=== PATIENT | female | born 1930 | race Caucasian/White ===

== ENCOUNTER 2018-02-25 16:28 | Inpatient (IN) | payer MEDICARE, OTHER ==
[~2018-02-25] VITALS: Ht 172.7 cm; Wt 63.7 kg
[2018-02-25 16:53] LABS: BGAS PH 7.31 (7.35-7.45)
--- NOTE | 2018-02-25 17:17 | RAD ---
RS Compliance Statement: One or more of the following individualized dose reduction techniques were utilized for this examination: 1. Automated exposure control 2. Adjustment of the mA and/or kV according to patient size 3. Use of iterative reconstruction technique CT head without contrast 02/25/2018 4:35 PM INDICATION: Altered loss of consciousness COMPARISON: None available TECHNIQUE: Multiple axial CT images of the head were obtained from skull base through the vertex without intravenous contrast. FINDINGS: Head: Ventricles, sulci and basal cisterns are within normal limits. Low-attenuation in the periventricular white matter suggestive of chronic small vessel ischemic changes. There is no hydrocephalus. Cooper-white matter differentiation is normal. There is no acute intracranial hemorrhage. There is no mass, mass effect or midline shift. Posterior fossa is normal in appearance. Visualized portions of the orbits are normal with exception of suspected bilateral lens replacement. Paranasal sinuses are well aerated. Mastoid air cells are well aerated. Scalp and calvaria are normal. IMPRESSION: No acute intracranial hemorrhage. There is low attenuation the periventricular white matter suggestive of chronic small vessel ischemic changes. Electronically signed by: Kim Mayes MD (02/25/2018 5:14 PM) [facility]
--- NOTE | 2018-02-25 17:19 | RAD ---
Exam: AP portable chest History: Altered level consciousness. Comparison: January 20, 2018. Findings: Cardiac silhouette appears within normal limits for size. Small left pleural effusion is seen, appears slightly larger. No pneumothorax identified. Right lung appears clear. 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 Impression: 1. Small left pleural effusion, slightly larger in the interval. Electronically signed by: James Mcdaniels MD (02/25/2018 5:15 PM) [facility]
[2018-02-25] MEDS ORDERED: IV NORMAL SALINE 1,000ML 1,000 ML IV ONE (17:30)
[2018-02-25 17:32] LABS: BASO # 0.2 x10^3/uL (0.0-0.2); BASO % 1 % (0-3); EOS % 0 % (0-3); HEMATOCRIT 38.4 % (36.0-47.0); HEMOGLOBIN 11.9 g/dL (12.0-15.5); LYMPH # 0.5 x10^3/uL (1.0-4.8); LYMPH % 2 % (24-48); MEAN CORPUSCULAR HEMOGLOBIN 28 pg (25-35); MEAN CORPUSCULAR HGB CONC 31 g/dL (31-37); MEAN CORPUSCULAR VOLUME 89 fL (79-100); MONO # 0.7 x10^3/uL (0.0-1.1); MONO % 3 % (0-9); NEUT # 21.5 x10^3uL (1.8-7.7); NEUT % 94 % (31-73); PLATELET COUNT 318 x10^3/uL (140-400); RED BLOOD COUNT 4.33 x10^6/uL (3.50-5.40); RED CELL DISTRIBUTION WIDTH 16.6 % (11.5-14.5); WHITE BLOOD COUNT 22.9 x10^3/uL (4.0-11.0)
--- NOTE | 2018-02-25 17:34 | PHYS DOC ---
Past History Past Medical History: COPD, GERD, Renal Disease, Renal Failure Past Surgical History: Other Alcohol Use: None Drug Use: None Adult General Chief Complaint Chief Complaint: ALTERED MENTAL STATUS HPI HPI 87-year-old female patient resident of rehabilitation brought in by EMS because of altered level of consciousness for the last 5 days gradually getting worse. Patient had a fall in middle of January and had left humerus fracture with several surgeries and since her fall and her condition declined and was not able to ambulate like her usual but was able to talk. Patient's son stated since 5 days ago she was not talking like her usual and yesterday her condition got worse. Patient is not able to give history. Review of Systems Review of Systems Unable to obtain because of medical condition and altered level of consciousness Physical Exam Physical Exam Constitutional: Moderate distress, non-toxic appearance, responsive to verbal stimuli. [] HENT: Normocephalic, atraumatic, oropharynx dry. Eyes: PERRLA, EOMI, conjunctiva normal, no discharge. [] Neck: Normal range of motion, no tenderness, supple, no stridor. [] Cardiovascular: Tachycardia, no murmur [] Lungs & Thorax: Marked respiratory distress with intercostal retraction, bilateral basilar rale Abdomen: Bowel sounds normal, soft, no tenderness, no masses, no pulsatile masses. [] Skin: Pale Extremities: Left upper extremity with old ecchymosis and surgical wound, bilateral lower extremity edema, moves all extremities Neurologic: Lethargic, oriented 1, speech is slurred , moves all extremities, limited exam because of altered level of consciousness. [] Psychologic: Unable to evaluate Current Patient Data Vital Signs Vital Signs Date Time Temp Pulse Resp B/P (MAP) Pulse Ox O2 Delivery O2 Flow Rate FiO2 02/25/18 17:15 103 24 123/47 (72) 95 Nasal Cannula 3.0 02/25/18 17:08 98.0 Lab Results Laboratory Tests Test 02/25/18 16:35 Blood pH 7.31 (7.35-7.45) L Blood Gas PCO2 65 mmHg (35-45) *H Blood Gas PO2 80 mmHg (71-100) Blood Gas HCO3 33 mmol/L (22-26) H Arterial Bld O2 Saturation (Calc) 94 % (92-99) FiO2 28 % EKG EKG EKG interpreted by me. EKG at 1711 showed sinus rhythm with PACs, low-voltage QRS, no acute ST and T-wave abnormalities[] Radiology/Procedures Radiology/Procedures [][address] [address] IMAGING REPORT Signed PATIENT: LINDA GUEVARA ACCOUNT: [id number] : 1930 LOCATION: ER AGE: 87 SEX: F EXAM STATUS: PRE ER ORD. PHYSICIAN: LYNN MCGRATH MD REASON: ALOC PROCEDURE: PORTABLE CHEST 1V Exam: AP portable chest History: Altered level consciousness. Comparison: January 20, 2018. Findings: Cardiac silhouette appears within normal limits for size. Small left pleural effusion is seen, appears slightly larger. No pneumothorax identified. Right lung appears clear. 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 Impression: 1. Small left pleural effusion, slightly larger in the interval. Electronically signed by: James Jackman MD (02/25/2018 5:15 PM) [facility] DICTATED AND SIGNED BY: JAMES JACKMAN MD DATE: 02/25/[address] [address] IMAGING REPORT Signed PATIENT: LINDA GUEVARA ACCOUNT: [id number] : 1930 LOCATION: ER AGE: 87 SEX: F EXAM STATUS: PRE ER ORD. PHYSICIAN: LYNN MCGRATH MD REASON: ALOC PROCEDURE: CT HEAD WO CONTRAST PQRS Compliance Statement: One or more of the following individualized dose reduction techniques were utilized for this examination: 1. Automated exposure control 2. Adjustment of the mA and/or kV according to patient size 3. Use of iterative reconstruction technique CT head without contrast 02/25/2018 4:35 PM INDICATION: Altered loss of consciousness COMPARISON: None available TECHNIQUE: Multiple axial CT images of the head were obtained from skull base through the vertex without intravenous contrast. FINDINGS: Head: Ventricles, sulci and basal cisterns are within normal limits. Low-attenuation in the periventricular white matter suggestive of chronic small vessel ischemic changes. There is no hydrocephalus. Cooper-white matter differentiation is normal. There is no acute intracranial hemorrhage. There is no mass, mass effect or midline shift. Posterior fossa is normal in appearance. Visualized portions of the orbits are normal with exception of suspected bilateral lens replacement. Paranasal sinuses are well aerated. Mastoid air cells are well aerated. Scalp and calvaria are normal. IMPRESSION: No acute intracranial hemorrhage. There is low attenuation the periventricular white matter suggestive of chronic small vessel ischemic changes. Electronically signed by: Basilia Veloz MD (02/25/2018 5:14 PM) [facility] DICTATED AND SIGNED BY: BASILIA VELOZ MD DATE: 02/25/18 1712 CC: LYNN MCGRATH MD ~ Course & Med Decision Making Course & Med Decision Making Pertinent Labs are pending. (See chart for details) 1730: Evaluation of patient in ER showed 87-year-old DNR patient brought in because of altered level of consciousness for more than 5 days. Patient was able to tell her name with slurred speech and moved all of her extremities. ABG showed elevation of PCO2 and patient started on BiPAP with increase of O2 sat to 99%. Chest x-ray showed chronic pleural effusion without acute finding. CT head did not show acute finding. Labs was pending. [1810: labs showed sepsis and urinary insufficiency and heart failure. IV fluid and vancomycin and Levaquin was started. Dr Rees accepted dmission at 1805. Dragon Disclaimer Dragon Disclaimer This electronic medical record was generated, in whole or in part, using a voice recognition dictation system. Departure Departure: Impression: Primary Impression: Sepsis Additional Impressions: Renal insufficiency Heart failure Respiratory distress Anemia Hyperkalemia Hypoalbuminemia Altered level of consciousness Disposition: 09 ADMITTED INPATIENT (at 1805) Admitting Physician: Ely Rees Condition: GUARDED Critical Care Time Critical care time was [80] minutes exclusive of procedures. Problem Qualifiers LYNN MCGRATH MD Feb 25, 2018 17:34
[2018-02-25 17:38] LABS: ALBUMIN 2.5 g/dL (3.4-5.0); ALBUMIN/GLOBULIN RATIO 0.6 (1.0-1.7); CALCIUM 8.9 mg/dL (8.5-10.1); CREATININE 2.9 mg/dL (0.6-1.0); GFR 15.4; MAGNESIUM 2.3 mg/dL (1.8-2.4); POTASSIUM 5.3 mmol/L (3.5-5.1); TOTAL BILIRUBIN 0.9 mg/dL (0.2-1.0); TOTAL PROTEIN 6.7 g/dL (6.4-8.2)
--- NOTE | 2018-02-25 17:48 | EKG ---
[address] [address] Test Date: 2018-02-25 Test Time: 17:11:05 Pat Name: LINDA GUEVARA Department: Room: Gender: F Top Flavor Attendant: KATHRIN : 1930 Requested By: LYNN MCGRATH Order Number: [id number] Reading MD: Measurements Intervals [place] Rate: 97 P: NM: QRS: 46 QRSD: 70 T: 49 QT: 350 QTc: 449 Interpretive Statements IRREGULAR RHYTHM, NO P-WAVE FOUND R-S TRANSITION ZONE IN V LEADS DISPLACED TO THE LEFT LOW LIMB LEAD VOLTAGE NO SPECIFIC ECG ABNORMALITIES RI6.01 No previous ECG available for comparison
[2018-02-25] MEDS ORDERED: VANCOMYCIN 1.5 GM in IV NORMAL SALINE 500ML 500 ML IV ONE (18:00)
[2018-02-25] MEDS ORDERED: VANCOMYCIN 1 GM in IV NORMAL SALINE 250ML 250 ML IV ONE (18:00)
[2018-02-25] MEDS ORDERED: ALBUTEROL SULFATE 2.5 MG/3 ML NEBU. CONT NEB ONE (18:15)
[2018-02-25 18:19] LABS: BILIRUBIN,URINE NEG (NEG); CLARITY,URINE CLOUDY; COLOR,URINE YELLOW; GLUCOSE,URINE NEG (NEG)
[2018-02-25 18:20] LABS: BACTERIA,URINE MOD /HPF (0-FEW); NITRITE,URINE NEG (NEG); SQUAMOUS EPITHELIAL CELL,UR MOD /LPF; UROBILINOGEN,URINE 0.2 mg/dL (0.2 mg/dL); WBC,URINE OCC /HPF (0-4)
[2018-02-25 18:21] LABS: AMORPHOUS SEDIMENT,UR PRESENT /HPF; HYALINE CASTS, URINE MOD /HPF
--- NOTE | 2018-02-25 19:00 | NUR ---
received report from Corey in ER. Awaiting pt arrival to unit.
--- NOTE | 2018-02-25 19:51 | NUR ---
Pharmacy Vancomycin Dosing Note S:Consulted to monitor and dose vancomycin started 02/25/18. O:LINDA GUEVARA is a 87 year old F with Sepsis . Height: 5 feet, 8 inches Weight: 63.7 kg [place] Body Weight: Adjusted Body Weight: Dosing Weight: Actual Other Antibiotics: LABS: Last BUN: 61 Last Creatinine: 2.9 Creatinine Clearance: Last WBC: 22.9 Last Platelets: Tmax (past 24 hours): Microbiology: I/O: Drug Levels: Last level: on at Last dose given 02/25/18 at 1800 Vancomycin Dosing: Loading Dose: 1500 mg x1 Dosing Weight: Actual Target Trough: 15-20 A: Based on: P: 1. Begin Vancomycin 1000 mg IV Dose Per Levels 2. Follow up Random level on 02/27/18 at 1730 3. Pharmacy will continue to monitor, follow and adjust therapy as needed. JESSIE DOTSON [facility], 02/25/18 195
[2018-02-25] MEDS ORDERED: VANCOMYCIN PER PHARMACY MC PRN (20:00)
[2018-02-25 21:13] LABS: % BANDS 21 % (0-9); % LYMPHS 2 % (24-48); % MONOS 1 % (0-10); % SEGS 74 % (35-66)
[2018-02-25 21:15] LABS: PLT ESTIMATE ADEQUATE (ADEQUATE)
[2018-02-25 21:16] LABS: OVALOCYTES PRESENT; STOMATOCYTES PRESENT; TARGET CELLS PRESENT
[2018-02-25 21:19] LABS: PLATELET CLUMP PRESENT; POLYCHROMASIA PRESENT
[2018-02-25 21:20] LABS: % ATYL 2 % (0-0)
[2018-02-25 21:45] VITALS: BP 104/46
--- NOTE | 2018-02-25 21:45 | NUR ---
Logan Crespo, 87 y/o female was admitted to ICU-1, under Dr. Rees's service. Diagnosis Sepsis, renal failure, CHF, respiratory distress, Anemia, hyperkalemia, hypoalbumemia, and altered mental status. Pt is accompanied by family members: son Liam West, daughter, Hoda Rogers. Patient is a DNR, family states it is patient's wish not to have anything invasive lifesaving procedures. At this time family and patient are requesting Bipap, IV antibiotics, IVF and Levophed drip (if needed) only. In report, it was stated that pt would only respond to her name and painful stimuli. Upon arrival to ICU, pt is awake, and able to to tell me her name, date of , and able to answer other pertinent questions. IV that was started in ER, was accidently pulled out during transport. Due to 3rd spacing pt is a difficult stick. PICC line nurse was called in to obtain IV access. RT was able to draw labs for repeat lactic acid. Written copies of unit and hospital policies and procedures were provided to pt and family. Reviewed poc with family and patient. All are in agreement, will proceed accordingly.
[2018-02-25 23:00] VITALS: BP 98/44
[2018-02-25] MEDS: IV NORMAL SALINE 1,000ML 1,000 ML IV SCH (23:14)
[2018-02-26] VITALS (14 sets, daily range): BP systolic 80–128; BP diastolic 44–66
[2018-02-26] MEDS ORDERED: NOREPINEPHRINE BITARTRATE 8 MG in IV NORMAL SALINE 250ML 250 ML IV PRN ×4
[2018-02-26] MEDS ORDERED: NOREPINEPHRINE BITARTRATE 4 MG/4 ML VIAL. IV ONE (00:08)
[2018-02-26] MEDS: IV NORMAL SALINE 1,000ML 1,000 ML IV SCH ×2 (00:55→09:23)
[2018-02-26] MEDS ORDERED: IRON1TAB69 PO (03:17)
[2018-02-26] MEDS ORDERED: TEMA15CA PO (03:17)
[2018-02-26] MEDS ORDERED: POTA20TA84 PO (03:17)
[2018-02-26] MEDS ORDERED: ENOX40DI SQ (03:17)
[2018-02-26] MEDS ORDERED: ACET500T68 PO (03:17)
[2018-02-26] MEDS ORDERED: DIAZ5TAB4 PO (03:17)
[2018-02-26] MEDS ORDERED: ATEN25TA PO (03:17)
[2018-02-26] MEDS ORDERED: FURO40TA4 PO (03:17)
[2018-02-26] MEDS ORDERED: ESCI20TA2 PO (03:17)
[2018-02-26] MEDS ORDERED: GABA100C6 PO (03:17)
[2018-02-26] MEDS ORDERED: AMLO5TAB2 PO (03:17)
[2018-02-26] MEDS ORDERED: PANT40TA5 PO (03:17)
--- NOTE | 2018-02-26 05:30 | NUR ---
pt has requested not to be on Bipap at this time, she states it hurts her nose and wants to try nasal cannula. Pt's O2 saturation is 100% on 2 liters/min. Pain was complaining of back and neck pain. Obtained orders for Fentanyl 25mcg IV Q4hrs prn pain. Patient has been alert and oriented since her arrival to ICU. Patient has required titration of levophed drip to maintain a systolic above 90. Patient states pain is almost completed resolved after fentanyl. Pt is currently resting comfortably and no signs of air hunger. Will continue to monitor pt.
--- NOTE | 2018-02-26 06:38 | RAD ---
AP chest. HISTORY: Short of air, CHF AP view was taken of the chest. There is a persistent left pleural effusion with little change. There is mild vascular congestion. There are no new infiltrates. There is a left shoulder prosthesis unchanged. IMPRESSION: 1. Little change from the recent prior study. Electronically signed by: Mike Alexander MD (02/26/2018 6:35 AM) [facility]
[2018-02-26 06:57] LABS: ALBUMIN/GLOBULIN RATIO 0.6 (1.0-1.7); CALCIUM 8.3 mg/dL (8.5-10.1); CREATININE 2.9 mg/dL (0.6-1.0); GFR 15.4; POTASSIUM 4.9 mmol/L (3.5-5.1); TOTAL BILIRUBIN 0.8 mg/dL (0.2-1.0); TOTAL PROTEIN 5.4 g/dL (6.4-8.2)
[2018-02-26 07:34] LABS: BASO # 0.1 x10^3/uL (0.0-0.2); BASO % 0 % (0-3); EOS % 0 % (0-3); HEMATOCRIT 35.6 % (36.0-47.0); HEMOGLOBIN 11.3 g/dL (12.0-15.5); LYMPH # 1.4 x10^3/uL (1.0-4.8); LYMPH % 7 % (24-48); MEAN CORPUSCULAR HEMOGLOBIN 28 pg (25-35); MEAN CORPUSCULAR HGB CONC 32 g/dL (31-37); MEAN CORPUSCULAR VOLUME 87 fL (79-100); MONO # 1.5 x10^3/uL (0.0-1.1); MONO % 7 % (0-9); NEUT # 18.4 x10^3uL (1.8-7.7); NEUT % 86 % (31-73); PLATELET COUNT 263 x10^3/uL (140-400); RED BLOOD COUNT 4.07 x10^6/uL (3.50-5.40); WHITE BLOOD COUNT 21.5 x10^3/uL (4.0-11.0)
[2018-02-26 09:16] LABS: % BANDS 14 % (0-9); % LYMPHS 13 % (24-48); % METAS 1 % (0-0); % MONOS 5 % (0-10); % SEGS 66 % (35-66); PLATELET CLUMP PRESENT
[2018-02-26 09:18] LABS: PLT ESTIMATE ADEQUATE (ADEQUATE)
[2018-02-26 09:19] LABS: TOXIC GRANULATION SLIGHT; TOXIC VACUOLATION SLIGHT
--- NOTE | 2018-02-26 10:30 | NUR ---
IV discontinued at this time due to infiltration. Spoke with family in regards to patients wishes of remaining comfortable; No antibiotics or IVF to continue.
[2018-02-26] MEDS ORDERED: LORazepam INTENSOL 2 MG/ML BOTTLE SL PRN (10:45)
[2018-02-26] MEDS ORDERED: MORPHINE SULFATE 20 MG/ML CONC SOLUTION. SL PRN (10:45)
[2018-02-26] MEDS ORDERED: ACETAMINOPHEN 650 MG SUPP.RECT. PR PRN (10:45)
--- NOTE | 2018-02-26 11:10 | NUR ---
Blood pressure remains stable, and continues on 3l O2 at this time with sats at 96%. Patient remains edematous to bilateral arms and legs, applied compressions to body to help decrease swelling.
--- NOTE | 2018-02-26 13:29 | NUR ---
Plan is to discharge back to [place] with [facility] for comfort measures. Family aware of plan of care and is at bedside with patient. audio visual manager has been working with family today on patients wishes of comfort care.
--- NOTE | 2018-02-26 15:45 | SSS ---
ADMIT DATE: 02/25/2018 HISTORY OF PRESENT ILLNESS: The patient is an 87-year-old female patient who came to the Emergency Room because of altered level of consciousness for the last 5 days, gradually getting worse. The patient had a fall in the middle of January with resultant left humeral fracture with several surgeries and since her fall, her condition has declined, was not able to ambulate like her usual, was able to talk. The patient's son stated that since 5 days ago, she was not talking like her usual and yesterday, her condition got worse. The patient is not able to give any history. She was evaluated in the Emergency Room and was found to have acute hypoxic hypercapnic respiratory failure. She was also found to be septic. Her white cell count was high at 22,900. Her kidney function has also worsened. Her creatinine was 2.9 and the patient was hypotensive, was started on IV vancomycin as well as levofloxacin as she is allergic to penicillin and as her blood pressure was low, she was started also on Levophed to maintain a mean arterial pressure of more than 65 mmHg. She was admitted to the ICU, continued with IV fluid. We had a lengthy discussion with the family regarding goal of therapy and a decision was made. The family opted to consider comfort care and she was evaluated by [facility] and the plan was to discharge her back to [facility] to continue on hospice care for end of life care. PAST MEDICAL HISTORY: Significant for chronic diastolic congestive heart failure, chronic kidney disease. She has chronic obstructive pulmonary disease, unspecified cognitive and communication deficit, difficulty walking. She has also had oropharyngeal dysphagia, fracture superior rim of the left pubis. She has gastroesophageal reflux disease, esophagitis, hypertensive heart disease, chronic kidney disease with heart failure. 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 ALLERGIES: She is allergic to PENICILLIN, EGGS, IODINE, LATEX, PHENOBARBITAL. MEDICATIONS: She is currently on the following medications: She is normally on Lovenox 30 mg subcutaneously once a day, atenolol 25 mg once a day, amlodipine besylate 5 mg daily, Tylenol 650 mg every 4 hours, gabapentin 100 mg daily, escitalopram oxalate 20 mg once a day, diazepam 5 mg p.o. q.8 hourly, temazepam 50 mg at bedtime, potassium chloride 20 mEq daily, furosemide 40 mg daily, Protonix 40 mg daily. FAMILY HISTORY: Unremarkable. SOCIAL HISTORY: She is , currently a resident at [facility]. She does not smoke, drink alcohol, or use any recreational drugs. PHYSICAL EXAMINATION: GENERAL: On examining her on arrival to the Emergency Room, she was pale, but no jaundice, cyanosis, or thyromegaly. No jugular venous distention. No lower limb edema. VITAL SIGNS: Her heart rate was 103, blood pressure was 123/47, temperature was 98, respiratory rate was 24, and oxygen saturation was 95% on 3 liters of oxygen. HEAD, EYES, EARS, NOSE, AND THROAT: Showed normocephalic, atraumatic. NECK: Supple. HEART: Showed normal first and second heart sounds with no gallop, rub, or murmur. CHEST: Clear to auscultation. No crepitation or rhonchi. ABDOMEN: Distended, soft, nontender. NEUROLOGIC: She is lethargic, but arousable. All cranial nerves intact. She is mostly bedbound and chair bound. LABORATORY DATA: Her lab work on arrival showed her white cell count to be 22,900, hemoglobin 11.9, hematocrit 38, MCV 89, and platelet count 318,000. His chemistry showed a serum sodium of 140, potassium 5.3, chloride 100, bicarbonate 33, anion gap of 7, BUN 61, creatinine 2.9, estimated GFR was 15 mL per minute, her glucose of 124, calcium was 8.9, magnesium was 2.3. Total bilirubin, AST, ALT were normal. Alkaline phosphatase was elevated. Her B-type natriuretic peptide was 17,000. Total protein 6.7, albumin was 2.5. Prothrombin time was 14.4, INR 1.4, aPTT was 33. D-dimer was 3.89. Her blood gases showed a pH of 7.31, pCO2 of 65, pO2 of 80, bicarbonate 33, and oxygen saturation was 94% on FiO2 of 28%. Urinalysis showed moderate amount of bacteria. It was negative for nitrite and leukocyte esterase. CT scan of the head showed no acute intracranial hemorrhage. There is low attenuation in the periventricular white matter suggestive of chronic small vessel ischemic disease. Her chest x-ray showed small left-sided pleural effusion, slightly larger in the interval. The patient as I stated was treated with IV vancomycin and Levaquin as she is allergic to penicillin. Her blood pressure dropped when she arrived to the ICU. So we started her on Levophed to maintain mean arterial pressure of 65 mmHg and therefore we have had a lengthy discussion with the family and decision was made to discharge her to go on hospice. FINAL DISCHARGE DIAGNOSES: 1. Sepsis. 2. Acute on chronic hypoxic hypercapnic respiratory failure. 3. Chronic obstructive pulmonary disease. 4. Acute on chronic kidney injury. CLARIBEL PONCE MD DR: GATO/richard JOB#: [id number] / [id number]
--- NOTE | 2018-02-26 16:02 | NUR ---
EMS here at this time, patient discharge to [facility] with belongings and family at side. Report given to Ludwig PARK.
[2018-02-27] MEDS ORDERED: VANCOMYCIN RANDOM LEVEL. MC ONE (17:30)
== END 2018-02-26 16:03 | disposition hospice, inpatient (51) | DRG 871 ==
LOC: ER 16:28 → ICU 18:04
PROVIDERS: ADMIT Internal Medicine; ATTEND Internal Medicine
PROC: 5A09357 Assistance with Respiratory Ventilation, Less than 24 Consecutive Hours, Continuous Positive Airway Pressure (ICD-10-PCS; principal; 2018-02-25)
PROC: 5A09357 Assistance with Respiratory Ventilation, Less than 24 Consecutive Hours, Continuous Positive Airway Pressure (ICD-10-PCS; 2018-02-26)
DX: A41.9 Sepsis, unspecified organism (principal); J96.21 Acute and chronic respiratory failure with hypoxia; J96.22 Acute and chronic respiratory failure with hypercapnia; I13.0 Hypertensive heart and chronic kidney disease with heart failure and stage 1 through stage 4 chronic kidney disease, or unspecified chronic kidney disease; N17.9 Acute kidney failure, unspecified; I50.32 Chronic diastolic (congestive) heart failure; D64.9 Anemia, unspecified; E87.5 Hyperkalemia; F32.9 Major depressive disorder, single episode, unspecified; G47.00 Insomnia, unspecified; E88.09 Other disorders of plasma-protein metabolism, not elsewhere classified; J44.9 Chronic obstructive pulmonary disease, unspecified; K21.9 Gastro-esophageal reflux disease without esophagitis; N18.9 Chronic kidney disease, unspecified; Z51.5 Encounter for palliative care; Z86.73 Personal history of transient ischemic attack (TIA), and cerebral infarction without residual deficits; Z88.0 Allergy status to penicillin
CPT/HCPCS: 36415; 70450; 71045; 80053; 81001; 82140; 82553; 82803; 83605; 83690; 83735; 83880; 84484; 85007; 85025; 85379; 85610; 85730; 87040; 87086; 87641; 93005; 94640; 96365; 96366; 96368; 99292; J1956; J3010; J3370; J7040; J7050; J7613; 99291-25; J7030